=== PATIENT | female | born 1990 | race Two or more races ===

== ENCOUNTER 2017-08-17 13:49 | Emergency (ER) | payer OTHER ==
[~2017-08-17 13:49] MED LIST: BACTRIM DS TAB1 EAC1 ORAL; KEFLEX500 MG ORAL; MACROBID100 MG ORAL
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
== END 2017-08-17 14:20 | disposition left against medical advice (07) ==
LOC: EMR 14:20
DX: S09.90XA Unspecified injury of head, initial encounter (principal); Z53.21 Procedure and treatment not carried out due to patient leaving prior to being seen by health care provider
CPT/HCPCS: 99281

== ENCOUNTER 2018-01-19 14:50 | Emergency (ER) | payer SELFPAY ==
[~2018-01-19] VITALS: Ht 157.5 cm; Wt 81.6 kg
[2018-01-19] MEDS ORDERED: Norco 5mg/325mg tab ORAL ONE (15:15)
--- NOTE | 2018-01-19 15:15 | Emergency Room Report ---
History of Present Illness General Chief Complaint: Upper Extremity Injury Source: Patient (Teresa Pizarro) Present Illness HPI 27-year-old female presents emergency department complaining of 8 out of 10 in severity pain, tenderness, swelling with some associated bruising to the right hand status post fall while skateboarding 2 days ago. Patient states she did not hit her head she denies loss of consciousness, midline neck or back pain. Patient describes falling on an outstretched arm to break her fall she denies previous injury to the affected extremity. Pain is worse upon making a fist. She denies open wounds or bleeding. Denies numbness tingling or loss of sensation or gross motor movements of the extremities, incontinence of bowel or bladder. Denies CP, Palpitations, LOC, AMS, dizziness, Changes in Vision, weakness or a sudden severe headache. (Teresa Pizarro) Allergies: Coded Allergies: No Known Allergies (Unverified , 06/16/14) Patient History Past Medical History: see triage record Past Surgical History: none Pertinent Family History: none Last Menstrual Period: no period after gave a Now: No - pt just gave a 11/06/17 Reviewed Nursing Documentation: PMH: Agreed; PSxH: Agreed (Teresa Pizarro) Nursing Documentation-PMH Past Medical History: No Stated History (Teresa Pizarro) Review of Systems All Other Systems: negative except mentioned in HPI (Teresa Pizarro) Physical Exam Vital Signs Date Time Temp Pulse Resp B/P (MAP) Pulse Ox O2 Delivery O2 Flow Rate FiO2 01/19/18 14:55 98.5 89 16 125/89 97 Room Air 98.4 Sp02 EP Interpretation: reviewed, normal General Appearance: no apparent distress, alert, GCS 15, non-toxic Head: normocephalic, atraumatic ENT: hearing grossly normal, normal voice Neck: full range of motion Respiratory: chest non-tender, lungs clear, normal breath sounds, speaking full sentences Cardiovascular #1: regular rate, rhythm, normal capillary refill Musculoskeletal: back normal, gait/station normal, normal range of motion, swelling - distal right hand/metacarpals, bruising to palmar aspect. FROM of all fingers, NVI, other - negative snuff box ttp or pain with axial loading of the thumb., tender - metacarpals of the right hand. Neurologic: alert, oriented x3, responsive, motor strength/tone normal, sensory intact, speech normal, grossly normal Psychiatric: judgement/insight normal Skin: normal color, no rash, warm/dry, well hydrated, other - bruising to the distal portion of the right thumb, swelling noted, no abrasions or erythema. (Teresa Pizarro) Medical Decision Making PA Attestation Dr. Weiss is my supervising Physician whom patient management has been discussed with. (Teresa Pizarro) Diagnostic Impression: Primary Impression: Sprain of hand, right Qualified Codes: S63.91XA - Sprain of unspecified part of right wrist and hand , initial encounter Additional Impression: Contusion of hand, right Qualified Codes: S60.221A - Contusion of right hand, initial encounter ER Course 27-year-old female presents emergency department complaining of 8 out of 10 in severity pain, tenderness, swelling with some associated bruising to the right hand status post fall while skateboarding 2 days ago. Patient states she did not hit her head she denies loss of consciousness, midline neck or back pain. Patient describes falling on an outstretched arm to break her fall she denies previous injury to the affected extremity. Pain is worse upon making a fist. She denies open wounds or bleeding. Denies numbness tingling or loss of sensation or gross motor movements of the extremities, incontinence of bowel or bladder. Denies CP, Palpitations, LOC, AMS, dizziness, Changes in Vision, weakness or a sudden severe headache. Ddx considered but are not limited to Fracture, dislocation, contusion, Sprain/ Strain/Spasm,Scaphoid Fx. Vital signs: are WNL, pt. is afebrile H&PE are most consistent with musculoskeletal injury will perform imaging to r/ o fractures/dislocations. ORDERS: - X-ray right hand 3 views - negative for fx, Dislocation, or significant soft tissue injury, per preliminary read in ED, and signed by TIMI Pizarro , my supervising physician has reviewed, and agrees with my interpretation. ED INTERVENTIONS: - [place] PO -Vu wrap applied by field technical support consultant. Pt. remains neurovascularly intact. DISCHARGE: At this time pt. is stable for d/c to home. Will provide printed patient care instructions, and any necessary prescriptions. Care plan and follow up instructions have been discussed with the patient prior to discharge. (Teresa Pizarro) Other X-Ray Diagnostic Results Other X-Ray Diagnostic Results : X-Ray ordered: Right Hand # of Views/Limited Vs Complete: 3 View Indication: Pain EP Interpretation: Yes PA Xray: Interpretation reviewed, by supervising MD, and agrees with findings. Interpretation: no dislocation, no soft tissue swelling, no fractures Impression: No acute disease Electronically Signed by: Teresa Pizarro PA-C (Teresa Pizarro) Other X-Ray Diagnostic Results : Electronically Signed by: Ro documentation reviewed by me and is accurate, Isaac Weiss MD. (Isaac Weiss M.D.) Last Vital Signs Date Time Temp Pulse Resp B/P (MAP) Pulse Ox O2 Delivery O2 Flow Rate FiO2 01/19/18 14:55 98.5 89 16 125/89 97 Room Air 98.4 (Teresa Pizarro) Disposition: HOME, SELF-CARE Condition: Stable Scripts Ibuprofen* (MOTRIN*) 600 Mg Tablet 600 MG ORAL THREE TIMES A DAY, #20 TAB 0 Refills Prov: Teresa Pizarro 01/19/18 Patient Instructions: Hand Contusion, [id number], Intermetacarpal Sprain- SportsMed Additional Instructions: Take medications as directed. Follow up with a Primary Care Provider in 3-5 days, even if your symptoms have resolved. --Please review list of primary care clinics, if you do not already have a primary care provider Return sooner to ED if new symptoms occur, or current symptoms become worse. Do not drink alcohol, drive, or operate heavy machinery while taking [ ] as this may cause drowsiness. - Please note that this Emergency Department Report was dictated using [employer] analyst technology software, occasionally this can lead to erroneous entry secondary to interpretation by the dictation equipment. Teresa Pizarro Jan 19, 2018 15:15 Isaac Weiss M.D. Jan 21, 2018 14:37
[2018-01-19 15:25] VITALS: BP 125/89
--- NOTE | 2018-01-19 15:29 | Diagnostic Imaging Report ---
Indication: Pain Technique: XRAY Hand Complete R Comparison: None Findings: No acute fracture or dislocation. No radiopaque foreign body seen. No focal soft tissue abnormality appreciated. Impression: No acute fracture or dislocation.
[2018-01-19] MEDS ORDERED: IBUPROFEN600 MG ORAL (15:48)
[2018-01-19 15:58] VITALS: BP 125/89
== END 2018-01-19 16:05 | disposition home or self-care (01) ==
LOC: EMR 15:45
DX: S63.91XA Sprain of unspecified part of right wrist and hand, initial encounter (principal); V00.131A Fall from skateboard, initial encounter; Y92.9 Unspecified place or not applicable
CPT/HCPCS: 99283